=== PATIENT | male | born 1970 | race Caucasian/White ===

== ENCOUNTER 2016-08-25 23:46 | Emergency (ER) | payer MEDICAID ==
[2016-08-26] MEDS ORDERED: CYCLOBENZAPRINE 10 MG TAB PO ONE (00:58)
--- NOTE | 2016-08-26 01:02 | EDPHY ---
H & P Stated Complaint: c/o L lateral chest pain x 3 days, felt a pop while pulling on something Source: Patient, Family Exam Limitations: No limitations - Medical/Surgical History Hx Asthma: No Hx Chronic Respiratory Disease: No Hx Diabetes: No Hx Cardiac Disease: No Hx Renal Disease: No Hx Cirrhosis: No Hx Alcoholism: No Hx HIV/AIDS: No Hx Splenectomy or Spleen Trauma: No Other PMH: hernia repair - Social History Smoking Status: Never smoked HPI/ROS: CHIEF COMPLAINT: Left rib pain, injury HISTORY OF PRESENT ILLNESS: left-sided rib pain after trying to pull something over the backseat of his vehicle 4 days ago. Noticed a sudden onset of pain and a popping sensation on the left anterior mid axillary ribs.It was moderate to severe pain that has steadily worsened over the past 4 days. No fevers or chills. No cough or congestion. It is significantly tender to palpation or movement. No position of comfort. Worse with deep inspiration and lying on the left side. Some improvement while lying on the right side. No shortness of breath. No other associated complaints or modifying factors. No use of blood thinners. Patient is a respiratory therapist. REVIEW OF SYSTEMS: Ten systems reviewed and are negative unless otherwise noted in the HPI EXAMINATION General Appearance: Alert, no distress Head: normocephalic, atraumatic Eyes: Pupils equal and round, no conjunctival pallor or injection ENT, Mouth: Mucous membranes moist Neck: Normal inspection, supple, non-tender Respiratory: Lungs are clear without wheezing, rhonchi or crackles. There is significant tenderness of the left anterior and mid axillary line. No crepitus or deformity. Cardiovascular: Mildly tachycardic rate with regular rhythm. No murmur. Pulses intact distally. Gastrointestinal: Abdomen is soft and nontender Back: non-tender, no bony abnormalities Neurological: A&O, nonfocal, normal gait Skin: Warm and dry, no rash Extremities: Nontender, no pedal edema Psychiatric: Mood and affect normal DIFFERENTIAL DIAGNOSES: Including but not limited to Rib fracture, rib contusion, strain, sprain, costochondritis MDM: 12:55 a.m. left-sided rib pain after mechanical injury. There is evidence of rib fracture on plain film. No evidence of pneumothorax or hemothorax. Trauma was at least 4 days ago. His vital signs are normal without any hypoxia. He is splinting reasonably given his injury. He is in no acute distress. Lung auscultation is clear in all fernandes. He will be discharged home with pain medication, instructions for pulmonary toiletry, short course of muscle relaxants, and instructions to follow up with his primary care physician. We did discuss return to the emergency department precautions. 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 He is in no acute distress and discharged home in stable condition. His friend is at bedside will drive him home. SUPERVISION: This patient was independently evaluated without the aide of supervising physician. (Marc Costello) Constitutional: Initial Vital Signs Temperature (C) 36.6 C 08/25/16 23:53 Heart Rate 118 H 08/25/16 23:53 Respiratory Rate 16 08/25/16 23:53 Blood Pressure 106/83 H 08/25/16 23:53 O2 Sat (%) 93 08/25/16 23:53 O2 Delivery Mode Room Air Allergies/Adverse Reactions: No Known Allergies Allergy (Verified 08/25/16 23:59) Home Medications: Medication Instructions Recorded Emtricitabine/Tenofovir [Truvada] 1 tab PO DAILY #3 tab 07/09/15 Cyclobenzaprine [Flexeril 10 MG 10 mg PO TID PRN #15 tab 08/26/16 (*)] oxyCODONE HCL/ACETAMINOPHEN 1 each PO Q4-6PRN PRN #15 tablet 08/26/16 [Percocet 5-325 mg Tablet] Medical Decision Making ED Course/Re-evaluation: PHYSICIAN DOCUMENTATION: The patient was evaluated and managed by the Physician Guide [employer]. My co- signature indicates that I have reviewed this chart and I agree with the findings and plan of care as documented. I am the secondary supervising physician. (Julieth Gómez) - Data Points Medications Given: Discontinued Medications Cyclobenzaprine HCl (Flexeril) 10 mg PO EDNOW ONE Stop: 08/26/16 00:59 Last Admin: 08/26/16 01:21 Dose: 10 mg Departure - Departure Disposition: Home, Routine, Self-Care Clinical Impression: Closed rib fracture Qualifiers: Encounter type: initial encounter Rib fracture type: single rib Laterality: left Qualified Code(s): S22.32XA - Fracture of one rib, left side, initial encounter for closed fracture Condition: Good Instructions: Rib Fracture (ED) Additional Instructions: Pain medication as discussed. Follow up with primary care physician. Pulmonary hygiene as discussed. Return to ER for worsening pain, any fever, shortness of breath or chest pain at rest Referrals: eHlio Hernandez MD [Primary Care Provider] - As per Instructions Prescriptions: Cyclobenzaprine [Flexeril 10 MG (*)] 10 mg PO TID PRN #15 tab PRN Reason: Spasms oxyCODONE HCL/ACETAMINOPHEN [Percocet 5-325 mg Tablet] 1 each PO Q4-6PRN PRN # 15 tablet PRN Reason: Pain, Breakthrough
[2016-08-26 01:23] VITALS: BP 108/100; PULSE 116; RESP 20; TEMP 98.2; O2SAT 94
== END 2016-08-26 01:23 | disposition home or self-care (01) ==
DX: S22.32XA Fracture of one rib, left side, initial encounter for closed fracture (principal); X50.9XXA Other and unspecified overexertion or strenuous movements or postures, initial encounter; Y93.89 Activity, other specified